=== PATIENT | male | born 1930 | race Caucasian/White ===

== ENCOUNTER → 2020-11-18 | Outpatient (CLI) | payer MEDICARE, OTHER ==
[~2020-11-18] MED LIST: APIX2.5T PO; CYCL5TAB PO; DRON400T6 PO; HYDR-2214 PO; NEBI5TAB3 PO; SIMV40TA20 PO
== END | disposition home or self-care (01) ==
LOC: RAD 08:45
PROVIDERS: ATTEND Internal Medicine Gastroenterology
DX: K22.5 Diverticulum of esophagus, acquired (principal); K22.8 Other specified diseases of esophagus; K22.2 Esophageal obstruction; R13.19 Other dysphagia
CPT/HCPCS: 74220

== ENCOUNTER → 2020-12-23 | Outpatient (CLI) | payer MEDICARE, OTHER | END | disposition home or self-care (01) | LOC: CVU 08:35 | PROVIDERS: ATTEND Internal Medicine Cardiovascular Disease | DX: I08.3 Combined rheumatic disorders of mitral, aortic and tricuspid valves (principal); I11.9 Hypertensive heart disease without heart failure; I25.5 Ischemic cardiomyopathy | CPT/HCPCS: 93306 ==